=== PATIENT | female | born 1985 | race Caucasian/White ===

== ENCOUNTER → 2019-05-30 | Outpatient (CLI) | payer OTHER ==
[2019-05-30 17:28] LABS: HEMOGLOBIN 12.7 g/dl (12.0-15.5); MEAN CORPUSCULAR HEMOGLOBIN 30.4 pg (27.0-33.0); MEAN CORPUSCULAR HGB CONC 33.4 g/dl (32.0-36.5); MEAN CORPUSCULAR VOLUME 90.9 fl (80.0-96.0); PLATELET COUNT, AUTOMATED 272 10^3/uL (150-450); RED BLOOD COUNT 4.18 10^6/uL (4.00-5.40); WHITE BLOOD COUNT 9.4 10^3/uL (4.0-10.0)
[2019-05-30 20:43] LABS: CHLAMYDIA DNA AMPLIFICATION NEGATIVE (NEGATIVE); GC DNA AMPLIFICATION NEGATIVE (NEGATIVE)
[2019-05-31 14:44] LABS: HIV 1&2 SCREEN CENTAUR NEGATIVE (NEGATIVE); RUBELLA IgG QUALITATIVE IMMUNE (IMMUNE)
[2019-06-02 10:15] LABS: HEPATITIS B SURFACE ANTIGEN NEGATIVE (NEGATIVE)
== END ==
LOC: M PLALAB 14:52
PROVIDERS: ATTEND Obstetrics & Gynecology
DX: O09.512 Supervision of elderly primigravida, second trimester (principal); O34.211 Maternal care for low transverse scar from previous cesarean delivery; Z3A.00 Weeks of gestation of pregnancy not specified

== ENCOUNTER → 2019-06-25 | Outpatient (CLI) | payer OTHER ==
--- NOTE | 2019-06-26 05:05 | REP ---
Clinical: Anatomical evaluation. Comparison: None . Findings: Examination demonstrates a single live intrauterine in variable presentation. motion is identified by technologist. Placenta is noted posterior and grade I without evidence for placenta previa or abruption. Amniotic fluid volume is normal. Cervix measures 4.0 cm in length and appears closed. No evidence for nuchal cord. Gestational age by LMP 19 weeks 2 days with FRANCINE see 11/17/2019 . Gestational age by current measurements 18 weeks 5-day with FRANCINE is 11/21/2019 . FHR equals 146 beats per minute. BPD 3.9 cm 17 weeks 6 days HC 16.1 cm 18 weeks 6 days AC 13.6 cm 19 weeks 0 days FL 2.9 cm 18 weeks 6 days HL 2.8 cm 19 weeks 1 day HC/AC ratio 1.18 Estimated weight 264 grams ( 33rd percentile). Anatomical assessment demonstrates normal structures including cranium, choroid plexus, cavum, cerebellum/posterior fossa, diaphragm, stomach, cord insertion/three-vessel cord, kidneys/bladder, spine, and extremities. Impression: 1. Single live intrauterine in variable presentation demonstrating appropriate estimated weight. 2. Limited evaluation of the facial features and cardiac/ventricular outflow tracts may warrant reevaluation and follow-up. Remainder of the anatomical assessment is complete and normal. Electronically Signed by Vitor Bush MD 06/26/2019 04:56 A
== END ==
LOC: M RAD 09:15 → EDUNIT# 09:30
PROVIDERS: ATTEND Obstetrics & Gynecology
DX: Z34.82 Encounter for supervision of other normal pregnancy, second trimester (principal)

== ENCOUNTER → 2019-07-18 | Outpatient (CLI) | payer OTHER ==
--- NOTE | 2019-07-18 19:28 | REP ---
Surgical ultrasound for anatomy follow-up: The prior study dated 06/25/2019 could not optimally demonstrate the facial features, four-chamber view of the heart or right cardiac ventricular outflow tract because of position. On the study today the facial profile and upper lip are adequately demonstrated and unremarkable. On the study today the four-chamber view of the heart and the cardiac right and left ventricular outflow tracts are satisfactorily demonstrated and unremarkable. The remainder of the anatomy today is satisfactorily demonstrated and is unremarkable as previously. There are no anomalies. There is a single intrauterine gestation. position is variable. There is motion. The heart rate is 146 beats per minute. The placenta is posterior. There is no previa or abruptio. The placenta is grade 1. Subjectively the amniotic fluid volume is normal. The cervix measures 4.0 cm. Gestational age by today's ultrasound is 18 weeks 5 days/FRANCINE 11/21/2019. Gestational age by LMP is A is 19 weeks 2 days/FRANCINE 11/17/2019. weight is 264 grams/0 pounds, 9 ounces. This is the 33rd percentile for 19 weeks 2 days. Electronically Signed by Emil Dukes MD 07/18/2019 07:19 P
== END ==
LOC: M RAD 17:46
PROVIDERS: ATTEND Obstetrics & Gynecology
DX: Z34.92 Encounter for supervision of normal pregnancy, unspecified, second trimester (principal)

== ENCOUNTER → 2019-10-21 | Outpatient (REF) | payer OTHER ==
[~2019-10-21] MED LIST: BUDE180INH INH; BUTACAP78 PO; PRENTAB9 PO; PROAAER10 INH
== END ==
LOC: M SFHCWAGY 16:39
PROVIDERS: ATTEND Obstetrics & Gynecology
DX: Z3A.36 36 weeks gestation of pregnancy (principal)

== ENCOUNTER → 2019-11-07 | Outpatient (CLI) | payer OTHER ==
[~2019-11-07] MED LIST changes: +DOCU100C16 PO; +IBUP80TA PO; +PERCOCET PO
== END ==
LOC: M LABSMTC 09:52
PROVIDERS: ATTEND Anesthesiology
DX: Z11.59 Encounter for screening for other viral diseases (principal)
CPT/HCPCS: C9803; U0003

== ENCOUNTER 2019-11-10 05:26 | Inpatient (IN) | payer OTHER ==
[2019-11-10] VITALS (7 sets, daily range): BP systolic 97–118; BP diastolic 53–68
[~2019-11-10] VITALS: Ht 152.4 cm; Wt 77.1 kg
[~2019-11-10 05:26] MED LIST changes: -DOCU100C16 PO; -IBUP80TA PO; -PERCOCET PO
[2019-11-10] MEDS ORDERED: BICITRA 30ML SOLN UDC PO ONE (05:45)
[2019-11-10] MEDS ORDERED: LR 1,000 ML IV ONE (05:45)
[2019-11-10] MEDS ORDERED: LR 1,000 ML IV SCH ×3 (05:45→09:30)
[2019-11-10] MEDS ORDERED: ceFAZolin SOD 2 GM in IV 1 EA IV ONE (06:00)
[2019-11-10 06:15] LABS: HEMATOCRIT 38.1 % (36.0-47.0); HEMOGLOBIN 12.9 g/dl (12.0-15.5); MEAN CORPUSCULAR HGB CONC 33.9 g/dl (32.0-36.5); MEAN CORPUSCULAR VOLUME 91.6 fl (80.0-96.0); PLATELET COUNT, AUTOMATED 192 10^3/uL (150-450); RED BLOOD COUNT 4.16 10^6/uL (4.00-5.40); WHITE BLOOD COUNT 8.1 10^3/uL (4.0-10.0)
[2019-11-10] MEDS ORDERED: MORPHINE PRES-FREE INJ 10 MG/10 ML VIAL (J2274) As Ordered ONE (07:27)
[2019-11-10] MEDS ORDERED: ONDANSETRON 4MG/2ML VIAL As Ordered ONE (07:28)
[2019-11-10] MEDS ORDERED: KETOROLAC 60MG 2ML VIAL As Ordered ONE (07:28)
[2019-11-10] MEDS ORDERED: OXYTOCIN INJ 10 UNITS/ML VIAL (J2590) As Ordered ONE (07:28)
[2019-11-10] MEDS ORDERED: ONDANSETRON 4MG/2ML VIAL IV PRN ×2 (07:40→09:30)
[2019-11-10] MEDS ORDERED: NALBUPHINE HCL 10 MG/ML AMP (J2300) IV PRN (07:40)
[2019-11-10] MEDS ORDERED: METOCLOPRAMIDE INJ 10MG/2ML VIAL (J2765 PER 1) IV PRN ×2 (07:40→09:30)
[2019-11-10] MEDS ORDERED: diphenhydrAMINE 50MG/ML VIAL (J1200) IV PRN (07:40)
[2019-11-10] MEDS ORDERED: NALOXONE INJ 0.4MG/1ML VIAL (J2310 PER 1MG) IV PRN ×2 (07:40)
[2019-11-10] MEDS ORDERED: fentaNYL 100 MCG/2 ML INJECTION (J3010) As Ordered ONE ×2 (08:21→10:13)
[2019-11-10] MEDS ORDERED: OXYTOCIN DRIP 30 UNITS in IV 1 EA IV SCH (08:50)
[2019-11-10] MEDS ORDERED: DOCU100C16 PO (08:58)
[2019-11-10] MEDS ORDERED: PERCOCET PO (08:58)
[2019-11-10] MEDS ORDERED: IBUP80TA PO (08:58)
[2019-11-10] MEDS ORDERED: ONDANSETRON 4 MG TAB PO PRN (09:00)
[2019-11-10] MEDS ORDERED: RHOGAM 300 MCG (1500 IU) INJ (J2790) IM SCH (09:00)
[2019-11-10] MEDS ORDERED: ACETAMINOPHEN 500 MG TAB PO PRN (09:00)
[2019-11-10] MEDS ORDERED: MEASLES,MUMPS,RUBELLA VACCINE INJ (MMR-II) (90707) SC SCH (09:00)
[2019-11-10] MEDS ORDERED: PERCOCET 5MG/325MG TAB PO PRN (09:30)
[2019-11-10] MEDS ORDERED: MEPERIDINE INJ 25 MG/ML VIAL (J2175) IV PRN (09:30)
[2019-11-10] MEDS ORDERED: OXYTOCIN 30 UNITS IN 0.9% NaCl 500ML IV BAG (J2590) As Ordered ONE (09:43)
[2019-11-10] MEDS: fentaNYL 100 MCG/2 ML INJECTION (J3010) IV PRN ×4 (10:18→11:00)
[2019-11-10] MEDS ORDERED: LR 500 ML IV ONE (11:00)
[2019-11-10] MEDS: PRENATAL VITAMINS CHEWABLE TABLET PO SCH (12:00)
[2019-11-10] MEDS: PERCOCET 5MG/325MG TAB PO PRN ×3 (12:55→21:33)
[2019-11-10] MEDS: KETOROLAC 30 MG/ML 1ML VIAL IV SCH ×2 (13:41→19:32)
[2019-11-10] MEDS: DOCUSATE SODIUM 100 MG CAP PO PRN (17:01)
[2019-11-11] MEDS: KETOROLAC 30 MG/ML 1ML VIAL IV SCH (01:52)
[2019-11-11 02:00] VITALS: BP 102/59
[2019-11-11] MEDS: PERCOCET 5MG/325MG TAB PO PRN ×5 (05:17→23:06)
[2019-11-11 05:35] VITALS: BP 104/56
[2019-11-11 07:57] LABS: HEMATOCRIT 32.5 % (36.0-47.0); MEAN CORPUSCULAR HEMOGLOBIN 31.4 pg (27.0-33.0); MEAN CORPUSCULAR HGB CONC 33.2 g/dl (32.0-36.5); MEAN CORPUSCULAR VOLUME 94.5 fl (80.0-96.0); PLATELET COUNT, AUTOMATED 159 10^3/uL (150-450); RED BLOOD COUNT 3.44 10^6/uL (4.00-5.40); WHITE BLOOD COUNT 5.9 10^3/uL (4.0-10.0)
[2019-11-11 07:59] LABS: HEMOGLOBIN 10.8 g/dl (12.0-15.5)
[2019-11-11] MEDS: IBUPROFEN 800 MG TAB PO SCH ×2 (09:11→17:24)
[2019-11-11] MEDS: PRENATAL VITAMINS CHEWABLE TABLET PO SCH (09:11)
--- NOTE | 2019-11-11 09:43 | IPNPDOC ---
Progress Note Date of Service: Nov 11, 2019 Day#: 1 Progress Note SUBJECT: Patient is a 34-year-old female who had a repeat section yesterday with a tubal ligation. She has been ambulating, voiding spontaneously without issue and tolerating regular diet. Breast feeding without issue. OBJECTIVE: VITAL SIGNS: Within normal limits, afebrile. Alert and oriented times three. Breath sounds clear to auscultation. Heart rate: Regular rate and rhythm, no murmurs, rubs or gallops. Abdomen: Fundus firm at U-1. Dressing is intact with no erythema present around dressing. Minimal lochia. ASSESSMENT: Day 1 postoperative. PLAN: 1. Continue supportive nursing care and pain management. 2. Patient to shower today. 3. Continue to ambulate. 4. Anticipate discharge to home tomorrow. VS, I&O, 24H, Fishbone Vital Signs/I&O Vital Signs Date Time Temp Pulse Resp B/P (MAP) Pulse Ox O2 Delivery O2 Flow Rate FiO2 11/11/19 05:47 18 11/11/19 05:35 97.6 84 104/56 (72) 97 Room Air I&O- Last 24 Hours up to 6 AM 11/11/19 06:00 Intake Total 3200 ml Output Total 2225 ml Balance 975 ml Laboratory Data 24H LABS Laboratory Tests 2 11/11/19 07:30: Nucleated Red Blood Cells % (auto) 0.0 CBC/BMP Laboratory Tests 11/11/19 07:30 CHRISTINA HOLLAND CNM Nov 11, 2019 09:43
[2019-11-11 10:00] VITALS: BP 112/55
[2019-11-11 14:00] VITALS: BP 105/62
[2019-11-11 18:34] VITALS: BP 110/59
[2019-11-11 22:00] VITALS: BP 114/60
[2019-11-11] MEDS: DOCUSATE SODIUM 100 MG CAP PO PRN (23:05)
[2019-11-12] MEDS: IBUPROFEN 800 MG TAB PO SCH ×2 (01:08→09:46)
[2019-11-12 02:14] VITALS: BP 104/53
[2019-11-12 05:52] VITALS: BP 110/65
[2019-11-12] MEDS: PERCOCET 5MG/325MG TAB PO PRN ×2 (05:59→11:37)
--- NOTE | 2019-11-12 07:33 | DS.PDOC ---
Discharge Summary General Date of Admission Nov 10, 2019 at 05:26 Date of Discharge 11/12/2019 Attending Physician: MARIA T BAZAN DO Discharge Summary PROCEDURES PERFORMED DURING STAY: 1. Spinal anesthesia. 2. section with bilateral Nora tubal ligation. ADMITTING DIAGNOSES: 1.Previous Section Satisfied Parity. DISCHARGE DIAGNOSES: 1.Previous Section Satisfied Parity. COMPLICATIONS/CHIEF COMPLAINT: Previous Section Satisfied Parity. HISTORY OF PRESENT ILLNESS: 33-year-old who presents at 39 weeks for repeat section. She underwent uncomplicated section with tubal ligation. section productive of a liveborn infant, Apgars 9 and 9. Weight was 3000 g, 6 lbs. 10 oz. Estimated blood loss is 600 amounts. Patient did well postoperatively. By postoperative day #2, had met all discharge criteria. She was discharged home in stable condition HOSPITAL COURSE:. Uncomplicated. DISCHARGE MEDICATIONS: Please see below. ALLERGIES: Please see below. PHYSICAL EXAMINATION ON DISCHARGE: VITAL SIGNS: Please see below. GENERAL:. No acute distress ABDOMINAL EXAMINATION: Soft, appropriately tender. Fundus firm below umbilicus. Incision was dressed NEUROLOGICAL EXAMINATION: Grossly intact LABORATORY DATA: Please see below. ACTIVITY: As tolerated. DIET: Regular DISCHARGE PLAN:. Discharge home DISCHARGE INSTRUCTIONS: 1. Follow-up in 2 weeks for incision check. 2. Remain on pelvic rest for 6 weeks. 3. Reports severe pain, heavy vaginal bleeding, heavy bleeding or in cisional issues. DISCHARGE CONDITION: Stable. Vital Signs/I&Os Vital Signs Date Time Temp Pulse Resp B/P (MAP) Pulse Ox O2 Delivery O2 Flow Rate FiO2 11/12/19 06:47 16 11/12/19 05:52 99.0 90 110/65 (80) 97 Room Air Discharge Medications Scheduled Budesonide (Pulmicort Flexhaler) 180 Mcg Aer.pow.ba, 1 PUFF INH BID, (Reported) Ibuprofen (Ibuprofen) 800 Mg Tablet, 800 MG PO Q8H No.137/Iron/Folic Acd ( Vitamin Tablet) 1 Each Tablet, 1 TAB PO DAILY, (Reported) Scheduled PRN Albuterol Sulfate (Proair Hfa) 8.5 Gm Hfa.aer.ad, 2 PUFF INH for SHORTNESS OF BREATH, (Reported) Butalb/Acetaminophen/Caffeine (Hsdrqf-Jayprfoj-Kuye 50-325-40) 1 Each Capsule, 1 CAP PO DAILYPRN PRN for MIGRAINE, (Reported) Docusate Sodium (Docusate Sodium) 100 Mg Capsule, 100 MG PO QHSP PRN for CONSTIPATION Oxycodone/Acetaminophen (Oxycodone-Acetaminophen 5-325) 1 Each Tablet, 2 TAB PO Q6H PRN for SEVERE PAIN (PS 8-10) Allergies Coded Allergies: No Known Allergies (Unverified , 10/27/19) NETO VEGA MD. Nov 12, 2019 07:33
[2019-11-12] MEDS: PRENATAL VITAMINS CHEWABLE TABLET PO SCH (09:46)
[2019-11-12 10:00] VITALS: BP 129/71
[2019-11-22] MEDS ORDERED: NITR-67 PO (19:57)
== END 2019-11-12 11:45 | disposition home or self-care (01) | DRG 540 ==
LOC: M LDI 05:26 → M OBS 11:40
PROVIDERS: ADMIT Obstetrics & Gynecology; ATTEND Obstetrics & Gynecology
PROC: 10D00Z1 Extraction of Products of Conception, Low, Open Approach (ICD-10-PCS; principal; 2019-11-10 07:30)
DX: O34.211 Maternal care for low transverse scar from previous cesarean delivery (principal); Z37.0 Single live birth; Z3A.39 39 weeks gestation of pregnancy; Z30.2 Encounter for sterilization

== ENCOUNTER → 2020-08-26 | Outpatient (REF) | payer OTHER ==
[~2020-08-26] MED LIST changes: +DOCU100C16 PO; +IBUP80TA PO; +NITR-67 PO; +PERCOCET PO
[2020-08-26 15:53] LABS: CHLAMYDIA DNA AMPLIFICATION NEGATIVE (NEGATIVE); GC DNA AMPLIFICATION NEGATIVE (NEGATIVE)
== END ==
LOC: M SFHCWAGY 13:18
PROVIDERS: ATTEND Nurse Practitioner Women's Health
DX: Z12.4 Encounter for screening for malignant neoplasm of cervix (principal)